=== PATIENT | female | born 1975 | race Asian ===

== ENCOUNTER 2025-09-15 09:19 | Inpatient (IN) | payer OTHER ==
[~2025-09-15] VITALS: Ht 157.5 cm; Wt 55.7 kg
[2025-09-15] MEDS ORDERED: AMLO-257 PO (09:30)
[2025-09-15] MEDS ORDERED: GLIP5TAB16 PO (09:30)
[2025-09-15] MEDS ORDERED: METF-1211 PO (09:30)
[2025-09-15] MEDS ORDERED: LISI-893 PO (09:30)
[2025-09-15] MEDS ORDERED: SITA25 PO (09:30)
[2025-09-15 09:46] LABS: GLUCOMETER DEV NAME(LOC) ER.7; GLUCOSE,POINT OF CARE 216 MG/DL (70-110)
[2025-09-15 10:17] LABS: PLATELET COUNT (AUTO) 467 K/uL (150-450); RED BLOOD CELL COUNT(AUTO) 4.29 MIL/uL (4.00-5.20); RED CELL DISTRIBUTION WIDTH 13.0 % (11.5-14.5); WHITE BLOOD COUNT (AUTO) 8.7 K/uL (4.5-11.0)
[2025-09-15 10:24] LABS: CALCIUM, TOTAL 8.9 mg/dL (8.8-10.5); CREATININE 2.75 mg/dL (0.60-1.30); GLOMERULAR FILTR. RATE CALC 18.0 mL/min (>60); GLUCOSE,RANDOM 232.0 mg/dL (70-110); SODIUM SERUM 142.0 mmol/L (136-145); UREA NITROGEN, BLOOD 37.0 mg/dL (7-18)
[2025-09-15] MEDS: LABETALOL HCL 200 MG in DEXTROSE 5%-WATER 160 ML IV PRN (12:39)
[2025-09-15] MEDS: ONDANSETRON HCL 4 MG/2 ML VIAL IVP ONE (13:20)
[2025-09-15] MEDS ORDERED: MORPHINE SULFATE 4 MG/ML SYRINGE IVP PRN ×2 (14:00→14:30)
[2025-09-15] MEDS ORDERED: BISACODYL 10 MG RECTAL RECTAL SUPPOSITORY PR PRN (14:30)
[2025-09-15] MEDS ORDERED: MAGNESIUM HYDROXIDE SUSPENSION 30 ML UDCUP PO PRN (14:30)
[2025-09-15] MEDS ORDERED: ZOLPIDEM TARTRATE 5 MG TABLET PO PRN (14:30)
[2025-09-15] MEDS ORDERED: HYDROCODONE/ACETAMINOPHEN 5-325 MG TABLET PO PRN (14:30)
[2025-09-15] MEDS: ACETAMINOPHEN 325 MG TABLET PO PRN (14:54)
[2025-09-15] MEDS: METOPROLOL SUCCINATE 50 MG ER TABLET PO SCH (14:54)
[2025-09-15] MEDS: NIFEdipine 60 MG ER TABLET PO SCH (14:54)
[2025-09-15] MEDS: ONDANSETRON HCL 4 MG/2 ML VIAL IVP PRN (14:54)
[2025-09-15] MEDS: HEPARIN SODIUM,PORCINE 5,000 UNITS/ML VIAL SQ SCH (16:00)
[2025-09-15 19:45] VITALS: BP 115/69; PULSE 80; RESP 18; TEMP 98.2; O2SAT 99
[2025-09-15] MEDS: DOCUSATE SODIUM 100 MG CAPSULE PO SCH (20:00)
[2025-09-15] MEDS ORDERED: PRED5DRO25 OD (21:55)
[2025-09-15] MEDS ORDERED: LISI-663 PO (22:00)
[2025-09-15] MEDS ORDERED: OFLO5DRO OD (22:00)
[2025-09-15] MEDS ORDERED: METO50TA9 PO (22:04)
[2025-09-15] MEDS ORDERED: ATOR40TA71 PO (22:06)
[2025-09-15] MEDS ORDERED: FURO-151 PO (22:07)
[2025-09-15] MEDS ORDERED: AMLO10TA55 PO (22:09)
[2025-09-16] VITALS (7 sets, daily range): BP systolic 105–149; BP diastolic 65–82; PULSE 81–86; RESP 16–19; TEMP 97.4–98.2; O2SAT 95–97
[2025-09-16 06:54] LABS: CALCIUM, TOTAL 8.6 mg/dL (8.8-10.5); CREATININE 3.03 mg/dL (0.60-1.30); GLOMERULAR FILTR. RATE CALC 17.0 mL/min (>60); GLUCOSE,RANDOM 184.0 mg/dL (70-110); SODIUM SERUM 144.0 mmol/L (136-145); UREA NITROGEN, BLOOD 49.0 mg/dL (7-18)
[2025-09-16 07:48] LABS: APPEARANCE,URINE CLEAR (CLEAR); GLUCOSE, URINE (UA) 300-500 mg/dL (NEGATIVE); LEUKOCYTE ESTERASE ,URINE NEGATIVE (NEGATIVE); NITRATE,URINE NEGATIVE (NEGATIVE); OCCULT BLOOD,URINE SMALL (NEGATIVE); SPECIFIC GRAVITIY, URINE 1.022 (1.003-1.030)
[2025-09-16 08:05] LABS: CREATININE,URINE RANDOM 137.2 mg/dL (30.0-125.0)
[2025-09-16 08:13] LABS: HYALINE CASTS, URINE 0-2 /LPF (None Seen); SQUAMOUS EPITHELIAL CELL,UR Few /LPF (None Seen); SULFOSALICYLIC ACID,URINE 3+ (Negative)
[2025-09-16] MEDS: PANTOPRAZOLE SODIUM 40 MG DR TABLET PO SCH (08:43)
[2025-09-16] MEDS: FUROSEMIDE 20 MG/2 ML VIAL IVP SCH (08:44)
[2025-09-16] MEDS: METOCLOPRAMIDE HCL 5 MG/ML 2 ML VIAL IVP SCH (12:32)
[2025-09-16] MEDS ORDERED: [UNRECOGNIZED DRUG - OTHER] OD SCH (16:00)
[2025-09-16] MEDS: PrednisoLONE ACETATE 1% 5 ML OPHTHALMIC SUSPENSION OD SCH (16:43)
[2025-09-16] MEDS: OFLOXACIN 0.3% 5 ML OPHTHALMIC SOLUTION OD SCH (16:43)
[2025-09-17] VITALS (7 sets, daily range): BP systolic 111–148; BP diastolic 56–80; PULSE 79–87; RESP 16–18; TEMP 97.9–99; O2SAT 93–97
[2025-09-17 06:27] LABS: CALCIUM, TOTAL 8.4 mg/dL (8.8-10.5); CREATININE 3.56 mg/dL (0.60-1.30); GLOMERULAR FILTR. RATE CALC 14.0 mL/min (>60); GLUCOSE,RANDOM 180.0 mg/dL (70-110); SODIUM SERUM 139.0 mmol/L (136-145); UREA NITROGEN, BLOOD 54.0 mg/dL (7-18)
[2025-09-17] MEDS: SODIUM CHLORIDE 0.9% 1,000 ML IV SCH (18:51)
[2025-09-18 03:41] VITALS: BP 153/79; PULSE 77; RESP 17; TEMP 98.1; O2SAT 95
[2025-09-18 07:00] LABS: PLATELET COUNT (AUTO) 389 K/uL (150-450); RED BLOOD CELL COUNT(AUTO) 3.85 MIL/uL (4.00-5.20); RED CELL DISTRIBUTION WIDTH 13.0 % (11.5-14.5); WHITE BLOOD COUNT (AUTO) 9.2 K/uL (4.5-11.0)
[2025-09-18 08:09] VITALS: BP 163/77; PULSE 78; RESP 18; TEMP 98.4; O2SAT 95
[2025-09-18 08:58] LABS: CALCIUM, TOTAL 8.3 mg/dL (8.8-10.5); CREATININE 3.28 mg/dL (0.60-1.30); GLOMERULAR FILTR. RATE CALC 15.0 mL/min (>60); GLUCOSE,RANDOM 141.0 mg/dL (70-110); SODIUM SERUM 136.0 mmol/L (136-145); UREA NITROGEN, BLOOD 58.0 mg/dL (7-18)
[2025-09-18 11:07] LABS: ALBUMIN URINE (ELP) 58.3 %; ALPHA-1 URINE (ELP) 1.1 %; TOTAL PROTEIN URINE 1342.7 mg/dL (Not Estab.)
[2025-09-18] MEDS ORDERED: METO-391 PO (11:49)
[2025-09-18] MEDS ORDERED: NIFE-129 PO (11:49)
[2025-09-18] MEDS ORDERED: HYDR50TA37 PO (11:49)
[2025-09-18 12:43] VITALS: BP 161/87; PULSE 83; RESP 18; TEMP 97.9; O2SAT 100
[2025-09-21 12:07] LABS: ALBUMIN/GLOBULIN RATIO (IFE) 0.7 (0.7-1.7); ALPHA-1 (IFE & PEP) 0.3 g/dL (0.0-0.4); ALPHA-2 (IFE & PEP) 0.9 g/dL (0.4-1.0); BETA (IFE & ELP) 1.3 g/dL (0.7-1.3); GAMMA GLOBULINS (IFE & ELP) 0.7 g/dL (0.4-1.8); GLOBULIN TOTAL (IFE) 3.1 g/dL (2.2-3.9); IGA (IFE) 291 mg/dL (87-352); IGM (IMMUNOFIXATION) 107 mg/dL (26-217); M-SPIKE (IEP) Not Observed g/dL (Not Observed)
[2025-09-24 16:07] LABS: ALDOSTERONE SERUM <1.0 ng/dL
[2025-09-25 04:07] LABS: ALDOSTERONE/RENIN RATIO <1.6; RENIN ACTIVITY 0.644 ng/mL/hr
== END 2025-09-18 13:45 | disposition home or self-care (01) | DRG 305 ==
LOC: EMS 09:19 → EDH 13:51 → 5S 19:20
PROVIDERS: ADMIT Internal Medicine; ATTEND Internal Medicine
DX: I16.1 Hypertensive emergency (principal); N17.9 Acute kidney failure, unspecified; E11.22 Type 2 diabetes mellitus with diabetic chronic kidney disease; I12.9 Hypertensive chronic kidney disease with stage 1 through stage 4 chronic kidney disease, or unspecified chronic kidney disease; N18.9 Chronic kidney disease, unspecified; E78.00 Pure hypercholesterolemia, unspecified; E11.319 Type 2 diabetes mellitus with unspecified diabetic retinopathy without macular edema; Z79.899 Other long term (current) drug therapy
CPT/HCPCS: 70450; 71045; 80048; 81001; 81002; 82088; 82570; 82784; 82962; 83880; 84155; 84156; 84165; 84166; 84244; 84300; 85025; 86334; 93005; 99285; J0360; J1644; J1938; J2405; J2765; J3490; J7030; J7060; 36415-L1; 36415-TC